=== PATIENT | male | born 1990 | race Asian ===

== ENCOUNTER 2018-01-09 08:54 | Emergency (ER) | payer MEDICAID ==
[~2018-01-09] VITALS: Ht 167.6 cm; Wt 74.8 kg
[2018-01-09 09:00] VITALS: Ht 167.6 cm; Wt 74.8 kg
[2018-01-09 09:43] VITALS: BP 132/99
== END 2018-01-09 09:43 | disposition home or self-care (01) ==
LOC: ED 08:54
DX: B34.9 Viral infection, unspecified (principal)

== ENCOUNTER 2018-01-10 16:56 | Emergency (ER) | payer MEDICAID ==
[~2018-01-10] VITALS: Ht 167.6 cm; Wt 75.3 kg
[2018-01-10 16:58] VITALS: Ht 167.6 cm; Wt 75.3 kg
[2018-01-10 18:35] LABS: CALCIUM 8.7 mg/dL (8.5-10.1); CARBON DIOXIDE 29.1 mmol/L (21-32); CHLORIDE SERUM 106 mmol/L (98-107); CREATININE SERUM 0.8 mg/dL (0.7-1.3); GFR1 > 60 mL/min; GLUCOSE SERUM 101 mg/dL (74-106); POTASSIUM SERUM 3.5 mmol/L (3.5-5.1); SODIUM SERUM 142 mmol/L (136-145)
[2018-01-10 18:39] LABS: BASOPHIL % 0.5 % (0-2); PLATELET COUNT 293 x10^3mcL (130-400); RED CELL DISTRIBUTION WIDTH 12.5 % (11.5-14.5)
[2018-01-10 18:40] LABS: ALBUMIN 4.2 g/dL (3.4-5.0); ALKALINE PHOSPHATASE 89 U/L (46-116); ALT/SGPT 33 U/L (16-63); AST/SGOT 15 U/L (15-37); BILIRUBIN TOTAL 0.69 mg/dL (0.20-1.00); LIPASE 129 IU/L (73-393); TOTAL PROTEIN, SERUM 7.9 g/dL (6.4-8.2)
[2018-01-10 18:45] LABS: microscopic required? NO
[2018-01-10 18:55] LABS: UA SPECIFIC GRAVITY <=1.005 (1.005-1.035); urine erythrocyte NEGATIVE (NEGATIVE)
[2018-01-10 19:03] LABS: AMPHETAMINE QUAL UR NONE DETECTED (See below)
[2018-01-10 20:00] VITALS: BP 130/85
== END 2018-01-10 20:00 | disposition home or self-care (01) ==
LOC: ED 16:56
PROVIDERS: Emergency Medicine
DX: B34.9 Viral infection, unspecified (principal); R07.89 Other chest pain
CPT/HCPCS: 36415; 87804; J1885; Q0162

== ENCOUNTER 2018-01-18 13:17 | Emergency (ER) | payer MEDICAID ==
[~2018-01-18] VITALS: Ht 167.6 cm; Wt 78.0 kg
[2018-01-18 13:35] VITALS: Ht 167.6 cm; Wt 78.0 kg
[2018-01-18 15:55] LABS: BASOPHIL % 0.3 % (0-2); PLATELET COUNT 295 x10^3mcL (130-400); RED CELL DISTRIBUTION WIDTH 12.4 % (11.5-14.5)
[2018-01-18 15:58] LABS: microscopic required? NO
[2018-01-18 15:58] LABS: CALCIUM 8.8 mg/dL (8.5-10.1); CARBON DIOXIDE 27.2 mmol/L (21-32); CHLORIDE SERUM 100 mmol/L (98-107); CREATININE SERUM 0.8 mg/dL (0.7-1.3); GFR1 > 60 mL/min; GLUCOSE SERUM 77 mg/dL (74-106); POTASSIUM SERUM 3.8 mmol/L (3.5-5.1); SODIUM SERUM 136 mmol/L (136-145)
[2018-01-18 16:05] LABS: ALBUMIN 4.2 g/dL (3.4-5.0); ALKALINE PHOSPHATASE 80 U/L (46-116); ALT/SGPT 52 U/L (16-63); AMYLASE 94 U/L (25-115); AST/SGOT 25 U/L (15-37); BILIRUBIN TOTAL 0.69 mg/dL (0.20-1.00); LIPASE 140 IU/L (73-393); TOTAL PROTEIN, SERUM 7.7 g/dL (6.4-8.2)
[2018-01-18 16:08] LABS: UA SPECIFIC GRAVITY <=1.005 (1.005-1.035); urine erythrocyte NEGATIVE (NEGATIVE)
[2018-01-18 17:16] VITALS: BP 118/55
== END 2018-01-18 17:16 | disposition home or self-care (01) ==
LOC: ED 13:17
PROVIDERS: Emergency Medicine
DX: A08.4 Viral intestinal infection, unspecified (principal)
CPT/HCPCS: 86308; J1885; J2405; Q9967

== ENCOUNTER 2018-02-11 13:18 | Emergency (ER) | payer MEDICAID ==
[~2018-02-11] VITALS: Ht 170.2 cm; Wt 75.3 kg
[2018-02-11 13:35] VITALS: Ht 170.2 cm; Wt 75.3 kg
[2018-02-11 14:22] LABS: BASOPHIL % 0.3 % (0-2); PLATELET COUNT 364 x10^3mcL (130-400); RED CELL DISTRIBUTION WIDTH 13.1 % (11.5-14.5)
[2018-02-11 14:44] LABS: CALCIUM 8.9 mg/dL (8.5-10.1); CARBON DIOXIDE 24.6 mmol/L (21-32); CHLORIDE SERUM 101 mmol/L (98-107); CREATININE SERUM 1.1 mg/dL (0.7-1.3); GFR1 > 60 mL/min; GLUCOSE SERUM 89 mg/dL (74-106); POTASSIUM SERUM 3.6 mmol/L (3.5-5.1); SODIUM SERUM 138 mmol/L (136-145)
[2018-02-11 14:48] LABS: microscopic required? NO
[2018-02-11 14:48] LABS: ALBUMIN 4.7 g/dL (3.4-5.0); ALKALINE PHOSPHATASE 100 U/L (46-116); ALT/SGPT 86 U/L (16-63); AST/SGOT 31 U/L (15-37); BILIRUBIN TOTAL 0.7 mg/dL (0.20-1.00); LIPASE 113 IU/L (73-393)
[2018-02-11 15:00] LABS: UA SPECIFIC GRAVITY <=1.005 (1.005-1.035); urine erythrocyte NEGATIVE (NEGATIVE)
[2018-02-11 15:08] LABS: TOTAL PROTEIN, SERUM 8.7 g/dL (6.4-8.2)
[2018-02-11 15:16] LABS: AMPHETAMINE QUAL UR NONE DETECTED (See below)
[2018-02-11 15:52] VITALS: BP 144/72
== END 2018-02-11 15:52 | disposition home or self-care (01) ==
LOC: ED 13:18
PROVIDERS: Emergency Medicine
DX: N28.9 Disorder of kidney and ureter, unspecified (principal); R10.9 Unspecified abdominal pain; R11.2 Nausea with vomiting, unspecified; R19.7 Diarrhea, unspecified
CPT/HCPCS: 87046; 87046-59; J2405; J3010; J7030

== ENCOUNTER 2019-03-22 13:41 | Emergency (ER) | payer OTHER ==
[~2019-03-22] VITALS: Ht 167.6 cm; Wt 77.6 kg
[2019-03-22 13:44] VITALS: BP 143/68; Ht 167.6 cm; Wt 77.6 kg
== END 2019-03-22 16:31 | disposition home or self-care (01) ==
LOC: ED 13:41
DX: S63.502A Unspecified sprain of left wrist, initial encounter (principal); S49.81XA Other specified injuries of right shoulder and upper arm, initial encounter; W01.0XXA Fall on same level from slipping, tripping and stumbling without subsequent striking against object, initial encounter; Y93.89 Activity, other specified; Y92.89 Other specified places as the place of occurrence of the external cause; Y99.8 Other external cause status
CPT/HCPCS: A4570